=== PATIENT | male | born 1960 | race Caucasian/White ===

== ENCOUNTER 2018-11-11 10:26 | Emergency (ER) | payer OTHER ==
[~2018-11-11] VITALS: Ht 180.3 cm; Wt 83.5 kg
[2018-11-11] MEDS ORDERED: BACTRIM DS TAB1 EACH PO (11:15)
== END 2018-11-11 11:28 | disposition home or self-care (01) ==
LOC: ER 10:26
DX: L02.511 Cutaneous abscess of right hand (principal); L03.011 Cellulitis of right finger

== ENCOUNTER 2019-01-04 08:37 | Emergency (ER) | payer OTHER ==
[~2019-01-04] VITALS: Ht 180.3 cm; Wt 81.6 kg
[~2019-01-04 08:37] MED LIST: BACTRIM DS TAB1 EACH PO
== END 2019-01-04 14:30 | disposition home or self-care (01) ==
LOC: ER 08:37
DX: M25.521 Pain in right elbow (principal); M79.644 Pain in right finger(s)

== ENCOUNTER 2019-04-06 07:43 | Emergency (ER) | payer OTHER ==
[~2019-04-06] VITALS: Ht 180.3 cm; Wt 79.4 kg
== END 2019-04-06 13:54 | disposition home or self-care (01) ==
LOC: ER 07:43
DX: H53.8 Other visual disturbances (principal); R42 Dizziness and giddiness

== ENCOUNTER → 2019-04-06 | Emergency (ER) | payer OTHER ==
[~2019-04-06] VITALS: Ht 177.8 cm; Wt 79.4 kg
[~2019-04-06] MED LIST changes: +CLONAZEPAM0.5 MG; +XANAX XR0.5 MG
== END | disposition left against medical advice (07) ==
LOC: ER 01:33
DX: Z53.20 Procedure and treatment not carried out because of patient's decision for unspecified reasons (principal)

== ENCOUNTER 2019-04-12 16:41 | Emergency (ER) | payer OTHER ==
[~2019-04-12] VITALS: Ht 177.8 cm; Wt 75.3 kg
== END 2019-04-12 19:56 | disposition home or self-care (01) ==
LOC: ER 16:41
DX: R53.81 Other malaise (principal)